=== PATIENT | female | born 1985 | race African-American/Black ===

== ENCOUNTER 2017-01-25 00:44 | Emergency (ER) | payer OTHER ==
[2017-01-25 01:15] VITALS: BP 102/65; PULSE 68; TEMP 98.1; BMI 20.8
== END 2017-01-25 02:10 | disposition left against medical advice (07) ==
LOC: JER 00:44
DX: Z53.21 Procedure and treatment not carried out due to patient leaving prior to being seen by health care provider (principal)
CPT/HCPCS: 99281-25

== ENCOUNTER 2021-02-19 16:56 | Emergency (ER) | payer OTHER ==
[2021-02-19 17:02] VITALS: BP 113/75; PULSE 99; TEMP 97.9; BMI 18.8
== END 2021-02-19 18:24 | disposition home or self-care (01) ==
LOC: JERFT 16:56
DX: R07.81 Pleurodynia (principal); V49.40XA Driver injured in collision with unspecified motor vehicles in traffic accident, initial encounter
CPT/HCPCS: 71111-TC-FY; 72050-TC-FY; 99284-25

== ENCOUNTER 2021-10-01 12:12 | Emergency (ER) | payer OTHER ==
[2021-10-01 13:08] VITALS: BP 114/85; PULSE 96; TEMP 98; BMI 18.1
[2021-10-01] MEDS ORDERED: IBUPROFEN 400 MG TABLET (FP) PO ONE ×2 (14:35→14:59)
[2021-10-01] MEDS ORDERED: diazePAM 5 MG TABLET PO ONE (14:35)
[2021-10-01] MEDS ORDERED: diazePAM 5 MG TABLET ONE (14:59)
== END 2021-10-01 15:07 | disposition left against medical advice (07) ==
LOC: JER 12:12
DX: M54.50 Low back pain, unspecified (principal); M25.512 Pain in left shoulder; M25.562 Pain in left knee; V87.7XXA Person injured in collision between other specified motor vehicles (traffic), initial encounter
CPT/HCPCS: 99283-25

== ENCOUNTER 2021-10-13 04:28 | Emergency (ER) | payer SELFPAY ==
[2021-10-13 04:47] VITALS: BP 104/67; PULSE 90; TEMP 98.3; BMI 18.6
[2021-10-13 06:06] LABS: URINE APPEARANCE CLEAR; URINE BILIRUBIN NEGATIVE (NEGATIVE); URINE COLOR YELLOW; URINE GLUCOSE (UA) NEGATIVE (NEGATIVE); URINE KETONE NEGATIVE (NEGATIVE); URINE LEUK ESTERASE NEGATIVE (NEGATIVE); URINE NITRITE NEGATIVE (NEGATIVE); URINE PROTEIN NEGATIVE (NEGATIVE)
== END 2021-10-13 06:46 | disposition left against medical advice (07) ==
LOC: JER 04:28
DX: R10.9 Unspecified abdominal pain (principal); M54.50 Low back pain, unspecified; V43.52XA Car driver injured in collision with other type car in traffic accident, initial encounter
CPT/HCPCS: 81003; 84703; 87086; 99285-25